=== PATIENT | male | born 1960 | race Caucasian/White ===

== ENCOUNTER → 2016-10-12 | Day surgery (SDC) | payer BC ==
[~2016-10-12] MED LIST: ALEVE220 M1 PO
--- NOTE | ~2016-10-12 | OR ---
Unit #: [id number] #: [id number] Patient: YARELY MAYO [id number] [address] [place], [place] [address] [id number] O MR#: [id number] NAME: YARELY MAYO ROOM: Date of Procedure: 10/12/2016 Admission Date: 10/12/2016 Surgeon: Garry Pate M.D. : 1960 Attending Physician: Garry Pate M.D. Referring Physician: Garry Pate M.D. Primary Care Physician: Nathan Fuentes M.D. [facility] OPERATIVE NOTE PROCEDURE PERFORMED Cervical epidural steroid injection under x-ray guided needle placement with provider administered conscious sedation. PREOPERATIVE DIAGNOSES 1. Acute cervical radiculitis. 2. Spinal stenosis, cervical spine. 3. Listhesis, C3-C4. 4. Herniated disk, C5-C6. 5. Herniated disk, C6-C7. INDICATIONS FOR PROCEDURE The patient presents today with a 4 to 6 month history of right-sided cervical radicular pain and upper extremity numbness, which has failed to respond to conservative measures which include medication and self-directed physical activity. He is in possession of MRI, which shows diffuse abnormalities, some of which are described above. After discussing risks and benefits of proceeding today with cervical approach epidural steroid injection, the patient agreed this would be the appropriate course of action. DESCRIPTION OF PROCEDURE He was then taken to the operating room, where he was prepped and draped in a sterile manner. Standard monitors were applied. He was sedated with 2 mg of IV Versed and cervical epidural space accessed at the C5-C6 level using loss of resistance technique and x-ray guidance. Needle placement was confirmed with injection of 2 mL of Omnipaque. There was good superior and inferior flow at the C5-C6 needle placement. Following successful needle placement confirmation, the patient received an injectate containing 4 mL normal saline and 80 mg of methylprednisolone. He tolerated this procedure well. He was discharged home with followup instructions, which include offer to return this clinic as early as 11/02/2016 if we could be of further service to him. Dictated by... Garry Pate M.D. DAWOOD/sixto TD: 10/12/2016 16:07 JOB #: [id number] CC: Jim Foster M.D. Unit #: [id number] #: [id number] Patient: YARELY MAYO [facility] OPERATIVE NOTE Page 1 of 1 X Bobby Pate MD PROCEDURE OPERATIVE NOTE
== END | disposition home or self-care (01) ==
LOC: CCSC 08:18
DX: M50.122 Cervical disc disorder at C5-C6 level with radiculopathy (principal); M50.123 Cervical disc disorder at C6-C7 level with radiculopathy; M43.12 Spondylolisthesis, cervical region; M48.02 Spinal stenosis, cervical region; K21.9 Gastro-esophageal reflux disease without esophagitis; M19.90 Unspecified osteoarthritis, unspecified site; Z88.8 Allergy status to other drugs, medicaments and biological substances
CPT/HCPCS: J1040; J2250

== ENCOUNTER → 2016-11-02 | Day surgery (SDC) | payer BC ==
--- NOTE | ~2016-11-02 | OR ---
Unit #: [id number] #: [id number] Patient: YARELY MAYO [id number] [address] [address] [id number] O MR#: [id number] NAME: YARELY MAYO ROOM: Date of Procedure: 11/02/2016 Admission Date: 11/02/2016 Surgeon: Garry Pate M.D. : 1960 Attending Physician: Bobby Pate Primary Care Physician: Nathan Fuentes M.D. [facility] OPERATIVE NOTE PROCEDURE PERFORMED Cervical epidural steroid injection under x-ray guided needle placement with provider administered conscious sedation. PREOPERATIVE DIAGNOSES 1. Acute cervical radiculitis. 2. Spinal stenosis, cervical spine. 3. Degenerative joint disease, cervical spine. 4. Degenerative disk disease, cervical spine. 5. Facet arthralgia, cervical spine. 6. Facet arthrosis, cervical spine. INDICATIONS FOR PROCEDURE The patient presents today status post one previous cervical approach epidural steroid injection for an acute radiculitis, which had failed to respond to conservative therapy. The patient states he got good results with almost complete resolution of his pain from a chronic state to a more intermittent status. He also states that he did not really receive much relief from his ongoing numbness. He does state these had new onset of pain that is more compatible with cervical facet arthralgia. I suspect this is due to an unmasking given the severity of his radicular pain prior existing. After discussing risks and benefits of proceeding today with cervical approach epidural steroid injection, referral to [facility] for potential facet joint injections and radiofrequency ablation if available and return to this clinic on 01/27/2017, the patient agreed this would be the appropriate course of action. DESCRIPTION OF PROCEDURE He was then taken to the operating room, where he was prepped and draped in a sterile manner. Standard monitors were applied. He was sedated with 2 mg of IV Versed. The cervical epidural space accessed at the C5-C6 level using loss of resistance technique and x-ray guidance. Needle placement was confirmed with injection of 2 mL of Omnipaque. There was good superior and inferior flow at the C5-C6 placed needle. Following successful needle placement confirmation which required an x-ray time of 3 seconds, the patient received an injectate containing 4 mL normal saline and 80 mg of methylprednisolone. He tolerated this procedure well. He was discharged home with followup instructions, which are detailed above. Dictated by... Garry Pate M.D. Unit #: [id number] #: [id number] Patient: YARELY MAYO G/modl TD: 11/02/2016 11:44 JOB #: [id number] [facility] OPERATIVE NOTE Page 1 of 1 X Bobby Pate MD X PROCEDURE OPERATIVE NOTE
== END | disposition home or self-care (01) ==
LOC: CCSC 07:26
DX: M50.10 Cervical disc disorder with radiculopathy, unspecified cervical region (principal); M47.22 Other spondylosis with radiculopathy, cervical region; M48.02 Spinal stenosis, cervical region; K21.9 Gastro-esophageal reflux disease without esophagitis; Z88.8 Allergy status to other drugs, medicaments and biological substances; Z98.890 Other specified postprocedural states
CPT/HCPCS: J1040; J2250